=== PATIENT | male | born 1955 | race Caucasian/White ===

== ENCOUNTER → 2019-04-16 14:41 | Outpatient (CLI) | payer OTHER, MEDICAID, SELFPAY ==
[2019-04-16 16:36] LABS: Microalbumi Creatinin Ratio Ur 17.2 ug/mg CR (<30)
== END ==
PROVIDERS: PCP Student in an Organized Health Care Education/Training Program; Visit Provider Student in an Organized Health Care Education/Training Program
DX: E11.9 Type 2 diabetes mellitus without complications (principal); Z79.4 Long term (current) use of insulin
CPT/HCPCS: 82043; 82570

== ENCOUNTER → 2019-05-14 07:52 | Outpatient (CLI) | payer OTHER, MEDICAID, SELFPAY ==
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
== END ==
PROVIDERS: PCP Student in an Organized Health Care Education/Training Program; Visit Provider Student in an Organized Health Care Education/Training Program
DX: S19.9XXA Unspecified injury of neck, initial encounter (principal); R29.898 Other symptoms and signs involving the musculoskeletal system; M47.812 Spondylosis without myelopathy or radiculopathy, cervical region; M48.02 Spinal stenosis, cervical region; M50.21 Other cervical disc displacement, high cervical region
CPT/HCPCS: 72141

== ENCOUNTER 2019-08-06 09:26 | Outpatient (CLI) | payer OTHER, MEDICAID, SELFPAY ==
--- NOTE | 2019-08-06 09:26 | DI.RAD.S_ITS ---
PROCEDURE: PAIN C/T INTERLAMINAR INJECT INDICATIONS: RADICULOPATHY FINDINGS: Fluoroscopic spot filming was performed to verify placement of spinal needles at the low cervical interlaminar notch level(s), as labeled on the films. Appropriate location(s) of the needle tip(s) was confirmed by injection of iodinated contrast. IMPRESSION: Successful needle tip localization epidural steroid injection at the low midline cervical interlaminar notch. Dictated by: Yefri Solo M.D. on 08/06/2019 at 12:11 Approved by: Yefri Solo M.D. on 08/06/2019 at 12:11
[2019-08-06 09:40] VITALS: BP 144/89; PULSE 81; RESP 18; TEMP 36.6; O2SAT 96
[2019-08-06 10:45] VITALS: BP 145/93; PULSE 87; RESP 16; O2SAT 96
--- NOTE | 2019-08-06 10:47 | PC.NURSE ---
NO SEDATION MEDS GIVEN.
[2019-08-06 10:50] VITALS: BP 144/85; PULSE 86; RESP 16; O2SAT 95
[2019-08-06] MEDS: LIDOCAINE 1% 20 ML 5 ML INJ (10:52)
[2019-08-06] MEDS: IOPAMIDOL 15 ML VIAL 3 ML INJ (10:52)
[2019-08-06] MEDS: DEXAMETHASONE 10 MG/ML VIAL 30 MG INJ (10:53)
--- NOTE | 2019-08-06 10:55 | PC.NURSE ---
NO SEDATION MEDS GIVEN. ASSISTING PT OFF TABLE AND TRANSPORTING TO POST PROC AREA IN STABLE CONDITION.
--- NOTE | 2019-08-06 10:59 | PM.PROC.1 ---
Procedures Date/Time Date of procedure: 08/06/19 Time of procedure: 10:59 General Procedure description: PREOP DIAGNOSIS 1. CERVICAL STENOSIS, 2. CERVICAL HNP WITH UPPER EXTREMITY RADICULAR FEATURES, POST OP DIAGNOSIS 1. CERVICAL STENOSIS, 2. CERVICAL HNP WITH UPPER EXTREMITY RADICULAR FEATURES, PROCEDURES 1. FLUORSCOPICALLY GUIDED CONTRAST CONTROLLED INTERLAMINAR EPIDURAL STEROID INJECTION - C6/7 TL RYLAN PHYSICIAN: Tj Rdz, DO INDICATIONS Saravanan is referred by Dr. Alvarenga for treatment of Cervical HNP with Upper Extremity Paresthesias. FINDINGS Cervical Stenosis due to disc deterioration and nerve root irritation and nerve root irritation DESCRIPTION OF PROCEDURE Fluoroscopically guided, contrast-controlled C6/7 translaminar epidural steroid injection with conscious sedation. Following review of allergy and review of potential side effects and complications, including, but not necessarily limited to, infection, allergic reaction, local tissue breakdown, temporary as well as permanent nerve injury, stroke, paralysis, and possible , the patient indicated that patient understood and agreed to proceed. An informed consent document was signed by the patient, witnessed by a nurse, and placed in the patient's chart. Additionally, other treatment options including modalities, medications, and physical therapy were reviewed with the patient. After review of previous anaesthesic history and IV conscious sedation the patient was deemed safe to proceed with todays procedure with IV conscious sedation as ASA class II designation. Safety time-out was performed to confirm patient ID, procedure to be performed and site of procedure. IV sedation was deemed unnecessary and thus notl administered by the RN after DO order, titrated to patient comfort during the course of the procedure while the patient remained responsive to all verbal commands. In the prone position, following sterile prep and drape of the cervical region, the C6/7 translaminar space was identified fluoroscopically. The skin was anesthetized via a 25-gauge 1.5-inch needle with 1% lidocaine solution. At this point, a 25-gauge, 2.5-inch short bevel spinal needle was atraumatically introduced and advanced under fluoroscopic guidance into epidural space at the C6/7 translaminar space. Depth was confirmed on lateral view. Radiological data, including multiple fluoroscopic views of the cervical spine, reveal a spinal needle at the C6/7 translaminar space. Lateral views then show placement of the needle in the epidural space. Subsequent views show contrast material flowing superiorly and inferiorly in the epidural space. DSA fluoroscopy with live contrast injection, once again, confirmed no vascular or intrathecal uptake. At this point, using loss of resistance technique with saline and air, the epidural space was entered. Following negative aspiration, injection of approximately 1.5 cc of Isovue-200 with live fluoroscopy in the AP view confirmed epidural flow in the epidural space without vascular or intrathecal uptake observed. Subsequently, a test dose of 1 cc of 1% lidocaine solution was injected and patient was observed for two minutes without signs or symptoms of complications, including abdominal pain, shortness of breath, bilateral upper or lower extremity weakness, nausea and vomiting, prior to steroid injection. At this point, 3cc or 30mg of dexamethasone was then injected without incident. The patient tolerated the procedure well without signs or symptoms of complications prior to being transferred to the recovery area for further monitoring, The patient was then transferred to the recovery area where they were observed for an appropriate period of time after the injection. The patient reported a VAS score of 6 prior to the procedure and a post-procedure VAS of 0. Total Fluoroscopy Time: 37.0 seconds Total Conscious Time: 24min POST OP INSTRUCTIONS The patient was provided a Pain Log to continue to record their response to the target-specific procedure prior to follow-up visit with the referring provider. Additionally, specific post-injection care instructions and a contact number to our office were provided if concerns arise regarding possible complications associated with the procedure are suspected. Tj Rdz DO Complications: none
[2019-08-06 11:00] VITALS: BP 130/88; PULSE 85; RESP 16; O2SAT 94
--- NOTE | 2019-08-06 11:05 | PC.NURSE ---
DI note: Received Saravanan awake, alert, and pleasant. No sedative medications given intra op.
== END 2019-08-06 16:08 | disposition home or self-care (01) ==
LOC: RAD 09:26
PROVIDERS: PCP Student in an Organized Health Care Education/Training Program; Visit Provider Physical Medicine & Rehabilitation
DX: M48.02 Spinal stenosis, cervical region (principal); M50.123 Cervical disc disorder at C6-C7 level with radiculopathy
CPT/HCPCS: 62321; J1100; J2250; J3010

== ENCOUNTER 2019-10-20 15:15 | Outpatient (RCR) | payer OTHER, MEDICAID, SELFPAY ==
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
--- NOTE | 2019-06-23 18:44 | PT-OP ANOTE ---
Pt came in earlier this day and stated he had to bring his mom to the ER and was going to try to make the PT appt also. He was supposed to call to cancel if he could not attend and we did not receive a call. No show for this appt.
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
== END 2019-10-26 08:59 ==
LOC: PHYS 15:15
PROVIDERS: PCP Student in an Organized Health Care Education/Training Program; Visit Provider Student in an Organized Health Care Education/Training Program
DX: R29.898 Other symptoms and signs involving the musculoskeletal system (principal); M54.2 Cervicalgia; R53.1 Weakness; R29.3 Abnormal posture
CPT/HCPCS: 97110; 97140; 97162

== ENCOUNTER → 2019-11-24 09:56 | Outpatient (CLI) | payer OTHER, MEDICAID, SELFPAY ==
[2019-11-24 10:31] LABS: Hemoglobin A1C% w Est Avg Glu 7.7 % (4.0-6.0)
[2019-11-24 10:43] LABS: BUN Creatinine Ratio 16.8 (6-22); Blood Urea Nitrogen 17 mg/dL (9-20); Carbon Dioxide 28 mmol/L (22-32); Chloride 103 mmol/L (98-107); Estimated Glomerular Filt Rate > 60.0 mL/min (>60); Glucose 165 mg/dL (80-110); HEMOLYSIS < 15 (0-50); Sodium 138 mmol/L (137-145)
[2019-11-24 11:14] LABS: Prostate Specific Antigen Scrn 2.93 ng/mL (0.1-4.0)
== END ==
PROVIDERS: PCP Student in an Organized Health Care Education/Training Program; Referring Provider Student in an Organized Health Care Education/Training Program; Visit Provider Student in an Organized Health Care Education/Training Program
DX: Z12.5 Encounter for screening for malignant neoplasm of prostate (principal); E11.9 Type 2 diabetes mellitus without complications; E78.2 Mixed hyperlipidemia
CPT/HCPCS: 36415; 80048; 83036; G0103

== ENCOUNTER → 2020-07-24 14:44 | Outpatient (CLI) | payer OTHER, MEDICAID, SELFPAY ==
[2020-07-24 15:19] LABS: Hemoglobin A1C% w Est Avg Glu 7.8 % (4.0-6.0)
[2020-07-24 16:10] LABS: Testosterone 481 ng/dL (71.8-623)
[2020-07-24 16:52] LABS: Creatinine Urine Random 104.9 mg/dL
[2020-07-24 17:09] LABS: Microalbumin Urine Random < 0.6 mg/dL (0-1.6)
== END ==
PROVIDERS: PCP Student in an Organized Health Care Education/Training Program; Referring Provider Student in an Organized Health Care Education/Training Program; Visit Provider Student in an Organized Health Care Education/Training Program
DX: E11.9 Type 2 diabetes mellitus without complications (principal); E29.1 Testicular hypofunction
CPT/HCPCS: 36415; 82043; 82570; 83036; 84403

== ENCOUNTER → 2021-07-02 14:04 | Outpatient (CLI) | payer OTHER, MEDICAID, SELFPAY ==
[2021-07-02 14:28] LABS: Add Manual Diff / Slide Review NO; Basophils Absolute Auto 100 /uL (0-100); Basophils Percent Auto 0.6 % (0-2); Eosinophils Absolute Auto 300 /uL (0-450); Eosinophils Percent Auto 3.1 % (2-4); Hematocrit 44.4 % (41-53); Hemoglobin 14.8 g/dL (13.5-17.5); Lymphocytes Absolute Auto 2500 /uL (1100-4500); Lymphocytes Percent Auto 24.4 % (25-40); Mean Corpuscular HGB Conc 33.4 % (30-36); Mean Corpuscular Hemoglobin 29.2 PG (26-34); Mean Corpuscular Volume 87.5 fL (80-100); Monocytes Absolute Auto 600 /uL (0-900); Monocytes Percent Auto 6.3 % (3-14); Neutrophils Absolute Auto 6700 /uL (1500-7000); Neutrophils Percent Auto 65.6 % (50-75); Platelet Count 370 X10^3/uL (150-400); Red Blood Cell Count 5.07 X10^6/uL (4.5-5.9); Red Cell Distribution Width 14.7 % (11.6-14.8); White Blood Cell Count 10.2 X10^3/uL (4.5-11.0)
[2021-07-02 14:48] LABS: Alanine Aminotransferase 33 IU/L (<50); Albumin 4.1 g/dL (3.5-5.0); Albumin Globulin Ratio 1.5 (1.0-2.8); Alkaline Phosphatase 64 U/L (38-126); Aspartate Aminotransferase 31 IU/L (17-59); BUN Creatinine Ratio 17.1 (6-22); Bilirubin Total 0.3 mg/dL (0.2-1.3); Blood Urea Nitrogen 18 mg/dL (9-20); Calcium 10.4 mg/dL (8.4-10.2); Carbon Dioxide 30 mmol/L (22-32); Chloride 101 mmol/L (98-107); Estimated Glomerular Filt Rate > 60.0 mL/min (>60); Globulin 2.8 g/dL (1.7-4.1); Glucose 144 mg/dL (80-110); HEMOLYSIS < 15 (0-50); Sodium 139 mmol/L (137-145); Total Protein 6.9 g/dL (6.3-8.2)
[2021-07-02 14:51] LABS: Hemoglobin A1C% w Est Avg Glu 8.8 % (4.0-6.0)
[2021-07-02 15:22] LABS: Prostate Specific Antigen Scrn 3.57 ng/mL (0.1-4.0)
[2021-07-02 15:23] LABS: Testosterone 298 ng/dL (71.8-623)
[2021-07-02 15:34] LABS: HIV 1 & 2 Ab/Ag 4th Gen Combo NEGATIVE (NEGATIVE)
[2021-07-02 15:35] LABS: Creatinine Urine Random 150.2 mg/dL
[2021-07-02 15:39] LABS: Microalbumi Creatinin Ratio Ur 12.6 ug/mg CR (<30); Microalbumin Urine Random 1.9 mg/dL (0-1.6)
[2021-07-03 05:41] LABS: HBsAg Screen Negative (Negative); Hepatitis A Antibody IgM Negative (Negative); Hepatitis B Core Antibody IgM Negative (Negative); Hepatitis C Antibody <0.1 s/co ratio (0.0-0.9); RPR Screen Non Reactive (Non Reactive)
[2021-07-03 06:05] LABS: HSV 2 IGG AB < 0.91 index (0.00-0.90); HSV1IGG 4.79 index (0.00-0.90)
[2021-07-03 14:31] LABS: Fecal Immunochemical Test Negative (Negative)
[2021-07-03 19:22] LABS: HSV I/II IgM <0.91 Ratio (0.00-0.90)
== END ==
PROVIDERS: PCP Student in an Organized Health Care Education/Training Program; Referring Provider Student in an Organized Health Care Education/Training Program; Visit Provider Student in an Organized Health Care Education/Training Program
DX: E11.69 Type 2 diabetes mellitus with other specified complication (principal); E29.1 Testicular hypofunction; E78.5 Hyperlipidemia, unspecified; I10 Essential (primary) hypertension; I87.2 Venous insufficiency (chronic) (peripheral); Z12.5 Encounter for screening for malignant neoplasm of prostate; I83.009 Varicose veins of unspecified lower extremity with ulcer of unspecified site; L97.909 Non-pressure chronic ulcer of unspecified part of unspecified lower leg with unspecified severity; Z20.828 Contact with and (suspected) exposure to other viral communicable diseases; Z72.51 High risk heterosexual behavior; Z12.11 Encounter for screening for malignant neoplasm of colon
CPT/HCPCS: 36415; 80053; 80074; 82043; 82274; 82570; 83036; 84403; 85025; 86592; 86694; 86695; 86696; 87389; G0103

== ENCOUNTER → 2022-05-07 14:00 | Outpatient (CLI) | payer OTHER, MEDICAID, SELFPAY ==
[2022-05-08 05:47] LABS: Fructosamine 204 umol/L (0-285)
== END ==
PROVIDERS: Family Provider Student in an Organized Health Care Education/Training Program; PCP Student in an Organized Health Care Education/Training Program; Referring Provider Student in an Organized Health Care Education/Training Program; Visit Provider Student in an Organized Health Care Education/Training Program
DX: E11.9 Type 2 diabetes mellitus without complications (principal)
CPT/HCPCS: 36415; 82985

== ENCOUNTER → 2023-10-03 09:24 | Outpatient (CLI) | payer MEDICARE, SELFPAY ==
[2023-10-03 10:22] LABS: Add Manual Diff / Slide Review NO; Basophils Absolute Auto 100 /uL (0-100); Basophils Percent Auto 0.7 % (0-2); Eosinophils Absolute Auto 300 /uL (0-450); Eosinophils Percent Auto 3.7 % (2-4); Hematocrit 41.1 % (41-53); Hemoglobin 13.7 g/dL (13.5-17.5); Lymphocytes Absolute Auto 2500 /uL (1100-4500); Lymphocytes Percent Auto 27.3 % (25-40); Mean Corpuscular HGB Conc 33.4 % (30-36); Mean Corpuscular Hemoglobin 29.5 PG (26-34); Mean Corpuscular Volume 88.2 fL (80-100); Monocytes Absolute Auto 600 /uL (0-900); Monocytes Percent Auto 6.4 % (3-14); Neutrophils Absolute Auto 5700 /uL (1500-7000); Neutrophils Percent Auto 61.9 % (50-75); Platelet Count 407 X10^3/uL (150-400); Red Blood Cell Count 4.66 X10^6/uL (4.5-5.9); Red Cell Distribution Width 14.3 % (11.6-14.8); White Blood Cell Count 9.2 X10^3/uL (4.5-11.0)
[2023-10-03 10:26] LABS: Appearance Urine UA CLEAR; Bilirubin Urine UA NEGATIVE (NEGATIVE); Color Urine UA YELLOW; Glucose Urine UA NEGATIVE (Negative); Ketones Urine UA NEGATIVE (NEGATIVE); Leukocyte Esterase Urine UA NEGATIVE (NEGATIVE); Nitrite Urine UA NEGATIVE (Negative); Occult Blood Urine UA NEGATIVE (Negative); Protein Urine UA NEGATIVE (Negative); Urobilinogen Urine UA 0.2 E.U./dL (0.2); pH Urine UA 6.5 (4.5-8.0)
[2023-10-03 10:36] LABS: Alanine Aminotransferase 34 IU/L (<50); Albumin Globulin Ratio 1.3 (1.0-2.8); Alkaline Phosphatase 54 U/L (38-126); Aspartate Aminotransferase 37 IU/L (17-59); BUN Creatinine Ratio 15.5 (6-22); Bilirubin Total 0.5 mg/dL (0.2-1.3); Blood Urea Nitrogen 17 mg/dL (9-20); Calcium 10.7 mg/dL (8.4-10.2); Carbon Dioxide 27 mmol/L (22-32); Chloride 100 mmol/L (98-107); Cholesterol 107 mg/dL (140-199); Estimated Glomerular Filt Rate > 60 mL/min (>60); Globulin 3.1 g/dL (1.7-4.1); Glucose 104 mg/dL (80-110); HDL Cholesterol 31 mg/dL (40-60); HEMOLYSIS < 15 (0-50); LDL Cholesterol Calculated 49 mg/dL (<100); Potassium 4.1 mmol/L (3.4-5.1); Sodium 137 mmol/L (137-145); Total Protein 7.1 g/dL (6.3-8.2); Triglycerides 134 mg/dL (35-150)
[2023-10-03 10:41] LABS: Bacteria Urine None Seen; RBC Urine None Seen (0-5/HPF); Squamous Epithelial Cell Urine None Seen (0-5/HPF); Urine Volume 10mL (spun); WBC Urine None Seen (0-5/HPF)
[2023-10-03 10:42] LABS: Culture Indicated Urine Cult Not Indicated
[2023-10-03 10:55] LABS: Creatinine Urine Random 94.8 mg/dL
[2023-10-03 11:03] LABS: Microalbumi Creatinin Ratio Ur 6.3 ug/mg CR (<30); Microalbumin Urine Random 0.6 mg/dL (0-1.6)
[2023-10-03 11:42] LABS: HIV 1 & 2 Ab/Ag 4th Gen Combo NEGATIVE (NEGATIVE); Hep C Virus Ab w/Reflex Quant NEGATIVE s/c (NEGATIVE)
[2023-10-03 12:14] LABS: Urine N gonorrhoeae NOT DETECTED
[2023-10-03 12:18] LABS: Urine Chlamydia NOT DETECTED
[2023-10-04 09:30] LABS: RPR Screen Non Reactive (Non Reactive)
[2023-10-07 17:46] LABS: Testosterone, Free 6.6 pg/mL (6.6-18.1)
[2023-10-12 09:40] LABS: Percent Free Testosterone 3.32 % (1.50-4.20); Testosterone Free 9.79 ng/dL (5.00-21.00); Testosterone Total 294.9 ng/dL (264.0-916.0)
== END ==
LOC: LAB 09:25
PROVIDERS: PCP Family Medicine; Referring Provider Family Medicine; Visit Provider Family Medicine
DX: E11.69 Type 2 diabetes mellitus with other specified complication (principal); E78.5 Hyperlipidemia, unspecified; I10 Essential (primary) hypertension; E55.9 Vitamin D deficiency, unspecified; E29.1 Testicular hypofunction; N52.9 Male erectile dysfunction, unspecified; Z20.2 Contact with and (suspected) exposure to infections with a predominantly sexual mode of transmission; Z79.4 Long term (current) use of insulin
CPT/HCPCS: 36415; 80053; 80061; 81001; 82043; 82570; 83036; 84402; 84403; 85025; 86592; 86803; 87389; 87491; 87591

== ENCOUNTER → 2023-10-13 09:22 | Outpatient (CLI) | payer MEDICARE, SELFPAY ==
[2023-10-21 11:11] LABS: Percent Free Testosterone 3.31 % (1.50-4.20); Testosterone Free 23.65 ng/dL (5.00-21.00); Testosterone Total 714.6 ng/dL (264.0-916.0)
== END ==
PROVIDERS: PCP Family Medicine; Referring Provider Family Medicine; Visit Provider Family Medicine
DX: F32.9 Major depressive disorder, single episode, unspecified (principal); Z12.11 Encounter for screening for malignant neoplasm of colon; N52.9 Male erectile dysfunction, unspecified
CPT/HCPCS: 36415; 84402; 84403

== ENCOUNTER → 2024-12-23 14:53 | Outpatient (CLI) | payer OTHER, SELFPAY ==
[2024-12-23 15:37] LABS: Add Manual Diff / Slide Review NO; Basophils Absolute Auto 100 /uL (0-100); Basophils Percent Auto 0.9 % (0-2); Eosinophils Absolute Auto 400 /uL (0-450); Eosinophils Percent Auto 3.3 % (2-4); Hemoglobin 13.9 g/dL (13.5-17.5); Lymphocytes Absolute Auto 2700 /uL (1100-4500); Lymphocytes Percent Auto 22.2 % (25-40); Mean Corpuscular HGB Conc 33.1 % (30-36); Mean Corpuscular Hemoglobin 29.6 PG (26-34); Mean Corpuscular Volume 89.3 fL (80-100); Monocytes Absolute Auto 600 /uL (0-900); Monocytes Percent Auto 5.2 % (3-14); Neutrophils Absolute Auto 8400 /uL (1500-7000); Neutrophils Percent Auto 68.4 % (50-75); Platelet Count 419 X10^3/uL (150-400); Red Blood Cell Count 4.71 X10^6/uL (4.5-5.9); Red Cell Distribution Width 14.1 % (11.6-14.8); White Blood Cell Count 12.3 X10^3/uL (4.5-11.0)
[2024-12-23 16:15] LABS: Alanine Aminotransferase 43 IU/L (<50); Albumin 4.5 g/dL (3.5-5.0); Albumin Globulin Ratio 1.6 (1.0-2.8); Alkaline Phosphatase 69 U/L (38-126); Aspartate Aminotransferase 42 IU/L (17-59); Bilirubin Total 0.5 mg/dL (0.2-1.3); Blood Urea Nitrogen 21 mg/dL (9-20); Calcium 10.8 mg/dL (8.4-10.2); Carbon Dioxide 23 mmol/L (22-32); Chloride 105 mmol/L (98-107); Cholesterol 154 mg/dL (140-199); Estimated Glomerular Filt Rate 60 mL/min (>60); Globulin 2.8 g/dL (1.7-4.1); Glucose 97 mg/dL (70-99); HEMOLYSIS < 15 (0-50); Sodium 140 mmol/L (137-145); Total Protein 7.3 g/dL (6.3-8.2); Triglycerides 166 mg/dL (35-150)
[2024-12-23 16:30] LABS: HDL Cholesterol 47 mg/dL (40-60); LDL Cholesterol Calculated 74 mg/dL (<100)
[2024-12-23 16:45] LABS: Prostate Specific Antigen Scrn 4.91 ng/mL (0.1-4.0)
[2024-12-23 16:48] LABS: Testosterone 178 ng/dL (71.8-623)
[2024-12-23 16:53] LABS: Hemoglobin A1C% w Est Avg Glu 6.9 % (4.0-6.0)
== END ==
PROVIDERS: PCP Family Medicine; Referring Provider Family Medicine; Visit Provider Family Medicine
DX: E11.9 Type 2 diabetes mellitus without complications (principal); Z79.4 Long term (current) use of insulin; E11.69 Type 2 diabetes mellitus with other specified complication; Z12.5 Encounter for screening for malignant neoplasm of prostate; Z12.11 Encounter for screening for malignant neoplasm of colon; E78.5 Hyperlipidemia, unspecified; F51.05 Insomnia due to other mental disorder; F41.9 Anxiety disorder, unspecified; I10 Essential (primary) hypertension; E29.1 Testicular hypofunction
CPT/HCPCS: 80053; 80061; 82274; 83036; 84403; 85025; G0103

== ENCOUNTER → 2024-12-30 19:10 | Outpatient (CLI) | payer OTHER, SELFPAY ==
--- NOTE | 2024-12-30 19:13 | DI.MRI.S_ITS ---
PROCEDURE: MR LUMBAR SPINE WO CON INDICATIONS: weakness lower extrems, worsening TECHNIQUE: Noncontrast sagittal T1 spin echo and T2 fast echo, sagittal STIR, and T2 fast spin echo through the lumbar spine. In cases with scoliosis, additional coronal T2 fast spin echo may be performed. COMPARISON: None. FINDINGS: Image quality: Excellent. Alignment and Curvature: There is normal bony alignment. Bone Marrow: Marrow is of normal overall signal. No acute vertebral body compression fractures. Spinal Cord: Conus medullaris terminates at the L1 level. Visualized cord demonstrates normal signal and size. Paraspinous Soft Tissues: No suspicious paravertebral masses. Lobulated fat signal structure with thin internal septations is seen in right posterior lower back soft tissue at the level of L4 and L5 vertebral bodies measures up to 2 x 5.3 cm in largest AP and craniocaudal dimensions incompletely evaluated on this study. Series 3, image 4 T12-L1: Normal appearance. L1-L2: Normal appearance. L2-L3: Mild broad-based disc bulge and bilateral facet arthrosis with mild left-sided neural foraminal narrowing. No significant central canal stenosis. L3-L4: There is disc desiccation and loss of disc height. Broad-based disc bulge and bilateral facet arthrosis with hypertrophy of ligamentum flavum causing moderate central canal stenosis and moderate left worse than right bilateral neural foraminal narrowing. There is likely compression of bilateral L3 nerve roots. L4-L5: There is disc desiccation. Broad-based disc bulge and bilateral facet arthrosis with mild central canal stenosis and moderate to severe bilateral neural foraminal narrowing slightly worse on the left side. Bulging disc is seen contacting bilateral L4 nerve roots. L5-S1: Loss of disc height and disc desiccation. Broad-based disc bulge and right lateral disc herniation causing mild central canal stenosis, severe right-sided neural foraminal narrowing and [id number] left-sided neural foraminal narrowing. Bulging disc likely contacting right L5 nerve root. IMPRESSION: 1. No marrow edema. No acute vertebral body compression fracture. 2. Multilevel spondylitic changes throughout lumbar spine causing various degrees of central canal stenosis and bilateral neural foraminal narrowing as described above. 3. No gross paraspinous soft tissue abnormalities. Possible lipoma in right posterior lower back soft tissue as described above. Dictated by: Gabriel Grewal M.D. on 12/30/2024 at 20:19 Approved by: Gabriel Grewal M.D. on 12/30/2024 at 20:24
== END ==
LOC: MRI 19:11
PROVIDERS: PCP Family Medicine; Referring Provider Family Medicine; Visit Provider Family Medicine
DX: M47.816 Spondylosis without myelopathy or radiculopathy, lumbar region (principal); M48.061 Spinal stenosis, lumbar region without neurogenic claudication; M48.07 Spinal stenosis, lumbosacral region; M79.604 Pain in right leg; M79.605 Pain in left leg; D72.829 Elevated white blood cell count, unspecified; R29.898 Other symptoms and signs involving the musculoskeletal system
CPT/HCPCS: 72148

== ENCOUNTER → 2025-01-26 15:18 | Outpatient (CLI) | payer OTHER, SELFPAY ==
[2025-01-26 16:04] LABS: Hematocrit 42.7 % (41-53); Hemoglobin 14.4 g/dL (13.5-17.5); Mean Corpuscular HGB Conc 33.7 % (30-36); Mean Corpuscular Hemoglobin 30.4 PG (26-34); Mean Corpuscular Volume 90.1 fL (80-100); Platelet Count 431 X10^3/uL (150-400); Red Blood Cell Count 4.74 X10^6/uL (4.5-5.9); Red Cell Distribution Width 14.8 % (11.6-14.8); White Blood Cell Count 9.1 X10^3/uL (4.5-11.0)
[2025-01-26 16:58] LABS: Prostate Specific Antigen Scrn 5.26 ng/mL (0.1-4.0)
[2025-01-26 18:09] LABS: Neutrophils Absolute Manual 4732 /uL (3000-5900); RBC Morphology Normal Morphology; Total Cells Counted 100
[2025-01-26 18:31] LABS: Appearance Urine UA CLEAR; Bilirubin Urine UA NEGATIVE (NEGATIVE); Color Urine UA YELLOW; Glucose Urine UA NEGATIVE (Negative); Ketones Urine UA NEGATIVE (NEGATIVE); Leukocyte Esterase Urine UA NEGATIVE (NEGATIVE); Nitrite Urine UA NEGATIVE (Negative); Occult Blood Urine UA NEGATIVE (Negative); Protein Urine UA 1+ (Negative); Urobilinogen Urine UA 0.2 E.U./dL (0.2); pH Urine UA 6.5 (4.5-8.0)
[2025-01-26 18:48] LABS: Amorphous Sediment Urine 1+; Bacteria Urine None Seen; Culture Indicated Urine Cult Not Indicated; RBC Urine None Seen (0-5/HPF); Squamous Epithelial Cell Urine 0-1 /HPF (0-5/HPF); Urine Volume 10mL (spun); WBC Urine 0-1/HPF (0-5/HPF)
[2025-01-26 19:50] LABS: Urine N gonorrhoeae NOT DETECTED
[2025-01-26 19:51] LABS: Urine Chlamydia NOT DETECTED
[2025-01-27 15:19] LABS: HIV 1 & 2 Ab/Ag 4th Gen Combo NEGATIVE (NEGATIVE); Hep C Virus Ab w/Reflex Quant NEGATIVE s/c (NEGATIVE)
[2025-01-30 14:36] LABS: Treponema pallidum Antibodies Non Reactive (Non Reactive)
== END ==
PROVIDERS: PCP Family Medicine; Referring Provider Family Medicine; Visit Provider Family Medicine
DX: Z20.2 Contact with and (suspected) exposure to infections with a predominantly sexual mode of transmission (principal); Z12.5 Encounter for screening for malignant neoplasm of prostate; D72.829 Elevated white blood cell count, unspecified; I10 Essential (primary) hypertension; E11.69 Type 2 diabetes mellitus with other specified complication; E78.5 Hyperlipidemia, unspecified; E11.9 Type 2 diabetes mellitus without complications; R97.20 Elevated prostate specific antigen [PSA]
CPT/HCPCS: 36415; 81001; 85025; 86780; 86803; 87389; 87491; 87591; G0103

== ENCOUNTER → 2025-03-30 08:32 | Outpatient (CLI) | payer OTHER, SELFPAY ==
[2025-03-30 09:11] LABS: Hemoglobin A1C% w Est Avg Glu 6.4 % (4.0-6.0)
== END ==
PROVIDERS: PCP Family Medicine; Referring Provider Family Medicine; Visit Provider Family Medicine
DX: E11.9 Type 2 diabetes mellitus without complications (principal); Z79.4 Long term (current) use of insulin
CPT/HCPCS: 36415; 83036

== ENCOUNTER → 2025-06-02 10:37 | Outpatient (CLI) | payer OTHER, SELFPAY ==
--- NOTE | 2025-06-02 10:40 | DI.RAD.S_ITS ---
PROCEDURE: XR HIP W PEL IF DONE RT 2V INDICATIONS: right hip pain TECHNIQUE: AP pelvis with lateral view(s) of the right hip(s). COMPARISON: None. FINDINGS: Bones: Mild bilateral hip joint narrowing and osteophytes of the acetabular rim. There are no osteophytes at the femoral head-neck junction. Advanced degenerative change of the visualized lumbar spine. No acute fractures or dislocations . Enthesophytes project of the iliac crests. Pelvic ring appears intact. No suspicious bony lesions. Soft tissues: The visualized bowel gas pattern is normal. No suspicious soft tissue calcifications. IMPRESSION: Mild degenerative changes in the right hip during Pelvic enthesopathy. Dictated by: Elza Gauthier RR Interpreted: Tj Smith MD on 06/02/2025 at 13:59 Transcribed by: LEONOR on 06/02/2025 at 14:02 Approved by: Tj Smith M.D. on 06/03/2025 at 8:51
== END ==
PROVIDERS: PCP Family Medicine; Referring Provider Physical Medicine & Rehabilitation; Visit Provider Physical Medicine & Rehabilitation
DX: M25.551 Pain in right hip (principal); M77.8 Other enthesopathies, not elsewhere classified; M51.16 Intervertebral disc disorders with radiculopathy, lumbar region
CPT/HCPCS: 73502; 99214

== ENCOUNTER 2025-07-07 10:03 | Outpatient (CLI) | payer OTHER, SELFPAY ==
[2025-07-07 10:42] VITALS: BP 126/76; PULSE 67; RESP 16; TEMP 35.9; O2SAT 96
[2025-07-07 11:02] VITALS: BP 141/87; PULSE 70; RESP 15; O2SAT 95
[2025-07-07 11:04] VITALS: BP 141/87; PULSE 76; RESP 14; O2SAT 96
[2025-07-07] MEDS: LIDOCAINE 1% (PF) 5 ML 10 ML INJ (11:07)
[2025-07-07 11:10] VITALS: BP 147/91; PULSE 71; RESP 17; O2SAT 95
[2025-07-07 11:15] VITALS: BP 149/82; PULSE 71; RESP 17; O2SAT 95
[2025-07-07 11:27] VITALS: BP 121/72; PULSE 68; RESP 16; O2SAT 96
--- NOTE | 2025-07-07 12:39 | PM.PROC.IR.1 ---
Date/Time/Diagnoses Date of procedure: 07/07/25 Time of procedure: 11:00 Pre-procedure diagnosis: Lumbosacral radiculopathy Post-procedure diagnosis: same Procedure Notes Procedure: Transforaminal epidural steroid injection right L5 completed. L4 level aborted. See below. Indications: Lumbosacral radiculopathy right side Physician: Tavo Mathew Total sedation minutes: 0 Complications: none Procedure in detail & Post-procedure care: Patient is here for the planned procedure today as noted. No significant change since the last office visit. For additional clinical scenario please see those office notes. Focused exam: Vital signs reviewed as charted on intake. Gen: Well developed. No acute distress. CV: RRR, no M/R/G Chest: Non-labored breathing, CTAB. Psych: Alert and well-oriented. Mood/Affect: normal. Patient suitable for the planned procedure today: Yes === The following procedure was performed in the office today: Lumbosacral Epidural Steroid Injection with fluoroscopic guidance - Transforaminal Approach (25270) Levels Treated: Right L5 completed. Right L4 aborted, see below. Approach: Transforaminal Soft tissue: [1% lidocaine 2 mL] Test dose: [1% lidocaine 1 mL] Injectate: 3 mL of the following solution: 1.5 mL of dexamethasone (10mg/mL) in 1.5 mL 1% lidocaine and 2 mL normal saline Fluoroscopy Agent: Isovue 300-M 1.5 mL Notes: 1- Note he is on Plavix. Associated increased bleeding risks discussed and he would like to proceed. 2- history IDDM, A1c 6.4, blood glucose this morning 119. Discussed associated risks and he would like to proceed. He will monitor blood glucose levels carefully and report any significant elevation. 3- notes severe right L5 neural foraminal narrowing. Therefore plan was to attempt in for neural approach at right L4 in addition to super neural approach at right L5. With optimal radiographic positioning of the right L4 spinal needle, there was consistently heme return. Repositioned without resolution. Given reasonable access at L5, decision made to abort L4 injection. Discussed with the patient who expressed understanding. 4- 5 in 22 gauge spinal needles were utilized an adequate. Preprocedure pain 7/10, postprocedure pain 3/10 Procedure: After discussing the risks, benefits, and alternatives to the procedure, the patient expressed understanding and wished to proceed. The risks include but are not limited to infection, allergic reaction, nerve damage, stroke, paralysis, epidural hematoma, syncope, headache, respiratory or cardiac arrest, spinal cord injury, and scar formation. Informed consent was obtained and all patient questions were answered. The patient was brought to the procedure suite and placed in the prone position. A pre-procedural pause was conducted to verify: correct patient identity, procedure to be performed and as applicable, correct side(s) and site(s), correct patient position, and any special requirements. For each target noted the following was performed: The C-arm was positioned so that an oblique view of the foramen noted above was visualized. The soft tissues overlying this structure were infiltrated with the anesthetic listed above. A 22 gauge spinal needle was inserted toward the target using a trajectory view along the fluoroscope beam. Under AP and lateral fluoroscopic visualization, the needle was advanced to the target. Multiplanar projections were used to confirm position. After negative aspiration, the contrast noted above was injected into the epidural space and the flow of contrast was observed, confirming epidural spread without evidence of intravascular or intrathecal spread. Multi-planar radiographs were obtained for documentation purposes. A test dose of lidocaine was injected into the above noted epidural space, and the patient was observed for 30-60 seconds. No sensory deficits were reported and normal lower extremity motor function was noted. Subsequently, the above total injectate as noted above was administered and distributed at each foramen into the noted transforaminal epidural space(s). Subsequently, the needle was removed. This process was repeated for additional target sites if noted above. The patient tolerated the procedure well and was discharged after an appropriate period of observation. If there are any concerns or complications, the patient was instructed to call us. The patient is to follow-up with the requesting provider in 2-3 weeks/as planned. This note was compiled using voice recognition software and therefore may contain typos. Please contact the author with any questions or concerns.
== END 2025-07-07 11:35 | disposition home or self-care (01) ==
LOC: RAD 10:03
PROVIDERS: PCP Family Medicine; Referring Provider Family Medicine; Visit Provider Physical Medicine & Rehabilitation
DX: M54.17 Radiculopathy, lumbosacral region (principal); E11.9 Type 2 diabetes mellitus without complications; Z79.02 Long term (current) use of antithrombotics/antiplatelets; Z79.4 Long term (current) use of insulin
CPT/HCPCS: 64483; 64484; 82962; J1100

== ENCOUNTER → 2025-07-18 16:01 | Outpatient (CLI) | payer OTHER, SELFPAY ==
--- NOTE | 2025-07-18 16:02 | DI.MRI.S_ITS ---
PROCEDURE: MR PELVIC PROSTATE PROTOCOL INDICATIONS: Elevated PSA TECHNIQUE: Coronal HASTE, axial T1 FSE with fat saturation, 3-plane nonbreath-hold T2 FSE. After the administration of contrast, dynamic axial, delayed axial and coronal VIBE or 2-D FLASH with fat saturation through the pelvis. Diffusion weighted imaging and ADC was performed. COMPARISON: None. FINDINGS: Image quality: Diffusion weighted and dynamic contrast enhanced images are diagnostic. Prostate: Gland size is 4.7 x 4.1 x 4.7 cm; ellipsoid gland volume is 47.1 mL. PSA density is 0.113 Transitional zone heterogenous nodules are present, either well encapsulated or mostly encapsulated, compatible with PI-RADS 1 or 2 likely BPH nodules. In the right apex peripheral zone, there is a small 8 x 8 x 6 mm lesion. T2 score 3. DWI score 3 DCE negative. PI-RADS 3. Genitourinary system: Trabeculated and thickened wall urinary bladder, which can be due to chronic obstruction Clear seminal vesicles. Bowel and peritoneum: Colonic diverticula. No ascites. Nodes and vessels: No aneurysmal artery identified. No enlarged lymph nodes by size criteria Soft tissues: Small fat containing inguinal hernias Bones: No suspicious marrow signal IMPRESSION: Small PI-RADS 3 lesion seen in the right apex peripheral zone. No finding identified with a high probability of clinically significant adenocarcinoma. Seminal vesicles are clear No pelvic lymphadenopathy by size criteria. No aggressive osseous abnormality. Dictated by: Dany Ferguson M.D. on 07/19/2025 at 8:34 Approved by: Dany Ferguson M.D. on 07/19/2025 at 8:40
== END ==
LOC: MRI 16:01
PROVIDERS: PCP Family Medicine; Referring Provider Urology; Visit Provider Urology
DX: R97.20 Elevated prostate specific antigen [PSA] (principal); N32.89 Other specified disorders of bladder; K40.90 Unilateral inguinal hernia, without obstruction or gangrene, not specified as recurrent
CPT/HCPCS: 72197; A9579